=== PATIENT | male | born 1960 | race Caucasian/White ===

== ENCOUNTER 2017-04-13 10:02 | Day surgery (SDC) | payer OTHER ==
--- NOTE | 2017-03-19 07:26 | HP ---
CC: Dr. Senia Hauser * PREOPERATIVE HISTORY AND PHYSICAL: DATE OF ADMISSION: Patient is scheduled for same-day surgery admission by Dr. Goodrich on 04/13/17. DATE OF PREOPERATIVE HISTORY AND PHYSICAL EXAMINATION: 03/17/17. ATTENDING SURGEON: Dr. Vasile Goodrich * (dictated by Denys Capone NP) CHIEF COMPLAINT: Umbilical hernia. HISTORY OF PRESENT ILLNESS: The patient is a 56-year-old male recently evaluated by Dr. Goodrich for umbilical hernia. The patient reports it has been present for approximately 10 years and he notes that it is getting more uncomfortable and enlarging. He denies any signs or symptoms to suggest incarceration or strangulation. Dr. Goodrich examined the patient and notes an umbilical hernia, soft and reducible with mild tenderness. Dr. Goodrich has recommended open umbilical hernia repair with mesh as a same-day surgery procedure, and has discussed the nature of the procedure, the rationale for the procedure, the relevant risks and benefits, and today I reviewed the typical postoperative care and recovery. The patient has had a chance to ask questions and stated that he understands the information and is satisfied with the answers given to his questions. He will sign surgical consent on the day of surgery. PAST MEDICAL HISTORY: Generally healthy, no acute or chronic conditions. PAST SURGICAL HISTORY: Repair of left inguinal hernia, age 15. MEDICATIONS: Are limited to: 1. Occasional multivitamins. 2. CoQ10. 3. Vitamin B complex. 4. Viagra 25 mg p.o. p.r.n. ALLERGIES: No known drug allergies. FAMILY HISTORY: No known anesthesia complications, bleeding tendencies, or clotting disorders. Both parents are and had a history of heart disease. Mother had a history of colon cancer and father, lung cancer. SOCIAL HISTORY: He is and is employed in [employer]. He has never been a smoker. He drinks alcohol 1 to 4 times per week and exercises 2 to 4 times a week. He denies the use of other substances. REVIEW OF SYSTEMS: Constitutional: No fevers, chills, excessive fatigue, or weight loss. Endocrine: No diabetes or thyroid disease. Hematologic: No easy bruising or bleeding. No previous blood transfusions. Respiratory: No chronic cough or dyspnea on exertion. Cardiovascular: No anginal chest pain. No history of myocardial infarction. No history of hypertension. No palpitations. Gastrointestinal: No nausea, vomiting, diarrhea, or constipation. No change in bowel habits. Genitourinary: No dysuria. Musculoskeletal: No back or joint pain. Neurologic: No headache, blurred vision, areas of focal weakness or numbness. General: No history of deep vein thrombosis or pulmonary embolism. No previous anesthesia complications. PHYSICAL EXAMINATION GENERAL SURVEY: The patient is a 56-year-old male, well-developed, well- nourished, in no acute distress. VITAL SIGNS: Height 76 inches, weight 230 pounds, body mass index 28, blood pressure 118/78, pulse 72 and regular, respiratory rate 18, temperature 97.9 tympanic. HEENT: Benign. NECK: Supple. No cervical lymphadenopathy. LUNGS: Breath sounds bilaterally clear and equal. HEART: Regular rate and rhythm. No murmurs or rubs appreciated. ABDOMEN: Active bowel sounds, soft, nondistended, nontender throughout. Umbilical hernia noted, soft, and reducible with mild tenderness. No other masses or organomegaly. EXTREMITIES: Warm without edema or skin ulceration. GENITALIA AND RECTAL: Exams deferred. NEUROLOGIC: Alert and oriented x3. Steady gait. SKIN: Warm, dry, intact. IMPRESSION: Umbilical hernia. PLAN: Same-day surgery admission to Dr. Goodrich service on 04/13/17, for open umbilical hernia repair with mesh. DENYS CAPONE, LUCRECIA [id number]/[facility] #: [id number] AMADO
[~2017-04-13 10:02] MED LIST: Buffered Lidocaine 0.9% SYRIN* 5 ML/SYR SYRINGE INTRADERM ONE; Ibuprofen TAB* 400 MG PO ONE; Sodium Citrate/Citric Acid* 15 ML UDC PO ONE
[2017-04-13] MEDS ORDERED: ceFAZolin 2 GM PREMIX (*) 2 GM/50 ML BAG IVPB ONE (10:09)
[2017-04-13] MEDS ORDERED: Buffered Lidocaine 0.9% SYRIN* 5 ML/SYR SYRINGE ONE (10:09)
[2017-04-13] MEDS ORDERED: Ibuprofen TAB* 400 MG ONE (10:09)
[2017-04-13] MEDS ORDERED: Sodium Citrate/Citric Acid* 15 ML UDC ONE (10:09)
[2017-04-13] MEDS ORDERED: Bupivacaine 0.5% SDV PF* 30 ML VIAL ONE (10:31)
[2017-04-13] MEDS ORDERED: Lidocaine 1% INJ* 10 MG/ML 30 ML SDV ONE (10:31)
[2017-04-13] MEDS ORDERED: fentaNYL* 50 MCG/ML 2 ML VIAL (100 MCG VIAL) ONE (10:39)
[2017-04-13] MEDS ORDERED: Midazolam* 1 MG/ML 2 ML VIAL (2 MG) ONE (10:44)
[2017-04-13] MEDS ORDERED: Propofol* 10 MG/ML 20 ML BTL IV PUSH ONE (10:57)
[2017-04-13] MEDS ORDERED: oxyCODONE/Acetamin 5/325 MG* TAB PO PRN ×2 (11:08→11:34)
[2017-04-13] MEDS ORDERED: Ketorolac INJ* 30 MG/ML 1 ML VIAL IV PRN (11:08)
[2017-04-13 11:53] VITALS: BP 124/85
--- NOTE | 2017-04-14 02:28 | OP ---
CC: Senia Hauser MD * DATE OF OPERATION: 04/13/17 - [facility] DATE OF : 64 SURGEON: Vasile Goodrich MD INFORMATION SCIENTIST: STEFFI Jack ANESTHESIOLOGIST: Larry Petersen MD ANESTHESIA: Local MAC. PRE-OP DIAGNOSIS: Umbilical hernia. POST-OP DIAGNOSIS: Umbilical hernia. OPERATIVE PROCEDURE: Open repair, umbilical hernia with mesh. ESTIMATED BLOOD LOSS: Minimal. IV FLUIDS: Crystalloid. SPECIMEN: None. DRAINS: None. COMPLICATIONS: None. COUNTS: The instrument, needle and sponge counts correct. DESCRIPTION OF PROCEDURE: The patient was brought to the operating room and placed on the table supine. Sequential compression devices were placed on both lower extremities. An intravenous sedation was administered. His abdomen was prepped and draped in the usual sterile fashion and time-out was performed. Local anesthetic was infiltrated into the skin and soft tissue prior to making each incision. The incision was created in a curvilinear infraumbilical fashion. The umbilical stalk was from the anterior abdominal wall. The umbilical sac was entered. Preperitoneal fat was excised. The hernia defect measured about 2 cm. Closure was performed with the Bard umbilical hernia mesh with the small size patch placed into the peritoneal cavity and drawn up through the defect using the straps. The mesh was sutured in place superiorly and inferiorly with 0 Ethibond suture. The straps were cut and then the defect was closed with interrupted 0 Ethibond suture using two figure-of-8 stitches to complete the closure. The umbilical stalk was reapproximated to the fascia with 3-0 Vicryl. Skin incision was closed with 4-0 Monocryl in subcuticular fashion. Steri-Strips and dressings were applied. The patient tolerated the procedure well, was awakened and transferred to the recovery room in stable condition. [id number]/[facility] [place] #: [id number] MTDD
== END 2017-04-13 12:02 | disposition home or self-care (01) ==
LOC: OR 10:02
PROVIDERS: ATTEND Surgery
DX: K42.9 Umbilical hernia without obstruction or gangrene (principal)
CPT/HCPCS: A9270-GY; C1781; J0690; J2250; J2704; J3010

== ENCOUNTER 2018-09-18 12:44 | Emergency (ER) | payer OTHER ==
[2018-09-18] MEDS ORDERED: Fluorescein Sodium TOPICAL* 1 MG TEST STRIP OPHTHALMIC ONE (13:19)
--- NOTE | 2018-09-18 13:24 | ED ---
Throat Pain/Nasal Congestion - HPI Summary HPI Summary: This patient is a 58 year old M presenting to [facility] with a chief complaint of left eye pain, blurry vision, and flashes of light after hitting himself in the left eye with a power cord yesterday. Symptoms are currently improved from yesterday. Pain is rated 2/10 in severity. - History of Current Complaint Chief Complaint: EDEyeProblem Time Seen by Provider: 09/18/18 13:12 Hx Obtained From: Patient Onset/Duration: Sudden Onset, Lasting Days Severity: Mild Associated Signs And Symptoms: Positive: Negative - Allergies/Home Medications Allergies/Adverse Reactions: Allergies Allergy/AdvReac Type Severity Reaction Status Date / Time No Known Allergies Allergy Verified 04/13/17 10:12 PMH/Surg Hx/FS Hx/Imm Hx Endocrine/Hematology History: Denies: Hx Diabetes Cardiovascular History: Denies: Hx Hypertension, Hx Pacemaker/ICD GI History: Reports: Hx Hiatal Hernia - HX OF IN THE PAST- STATES HAD SURGERY FOR History: Denies: Hx Renal Disease Sensory History: Denies: Hx Contacts or Glasses, Hx Hearing Aid Opthamlomology History: Denies: Hx Contacts or Glasses Psychiatric History: Denies: Hx Panic Disorder - Surgical History Surgery Procedure, Year, and Place: HERNIA-HIATAL. LASIK EYES Hx Anesthesia Reactions: No Infectious Disease History: No Infectious Disease History: Denies: Traveled Outside the [place] in Last 30 Days - Family History Known Family History: Negative: Blood Disorder - Social History Alcohol Use: None Alcohol Amount: SEVERAL DRINKS PER WEEK Substance Use Type: Reports: None Smoking Status (MU): Never Smoked Tobacco Review of Systems Negative: Fever Positive: Blurred Vision, Other - eye pain, flashes All Other Systems Reviewed And Are Negative: Yes Physical Exam - Summary Physical Exam Summary: Appearance: The patient is well-nourished in no acute distress and in no acute pain. Skin: The skin is warm and dry and skin color reflects adequate perfusion. HEENT: The head is normocephalic and atraumatic. The pupils are equal and reactive. The conjunctivae are clear and without drainage. Nares are patent and without drainage. Mouth reveals moist mucous membranes and the throat is without erythema and exudate. The external ears are intact. The ear canals are patent and without drainage. The tympanic membranes are intact. Eye: Pupils 2mm, bialetally reactive both direct and consensual, sclera is clear , chamber looks clear, fundus clearing not visualized on left , extraocular muscle in tact, good red reflex Neck: The neck is supple with full range of motion and non-tender. There are no carotid bruits. There is no neck vein distension. Respiratory: Chest is non-tender. Lungs are clear to auscultation and breath sounds are symmetrical and equal. Cardiovascular: Heart is regular rate and rhythm. There is no murmur or rub auscultated. There is no peripheral edema and pulses are symmetrical and equal. Abdomen: The abdomen is soft and non-tender. There are normal bowel sounds heard in all four quadrants and there is no organomegaly palpated. Musculoskeletal: There is no back tenderness noted. Extremities are non-tender with full range of motion. There is good capillary refill. There is no peripheral edema or calf tenderness elicited. Neurological: Patient is alert and oriented to person, place and time. The patient has symmetrical motor strength in all four extremities. Cranial nerves are grossly intact. Deep tendon reflexes are symmetrical and equal in all four extremities. Psychiatric: The patient has an appropriate affect and does not exhibit any anxiety or depression Triage Information Reviewed: Yes Vital Signs On Initial Exam: Initial Vitals Temp Pulse Resp BP Pulse Ox 98.1 F 82 18 113/87 97 09/18/18 12:48 09/18/18 12:48 09/18/18 12:48 09/18/18 12:48 09/18/18 12:48 Vital Signs Reviewed: Yes Diagnostics - Vital Signs Vital Signs Temp Pulse Resp BP Pulse Ox 09/18/18 12:48 98.1 F 82 18 113/87 97 - Laboratory Lab Statement: Any lab studies that have been ordered have been reviewed, and results considered in the medical decision making process. EENT Course/Dx - Course Course Of Treatment: Mr. Dugan was pulling on an electrical cord yesterday and it flipped back and hit his left eye. He noticed some electric light type symptoms later in the day when he was relaxing on the deck. Today's noticed a little bit of blurriness in his vision. He does say that it hurts a little bit and that he has little bit of photophobia. He was nontoxic in appearance with stable vitals. His pupils are equal and reactive to both direct and consensual light. The sclera is clear. Slit lamp is not available but his anterior chamber looks grossly clear. His pupils are quite small even in a dark room bilaterally and I can barely see his retina on the right and can't really see it on the left. His visual acuities revealed 20/15 in his right eye and 20/40 to 20/60 in the left eye. I spoke with Dr. Anderson office administration for ophthalmology who recommended cycloplegic drops and follow up first thing in the morning with Dr. Anderson. Patient agrees to do that. - Diagnoses Provider Diagnoses: Traumatic iritis - Provider Notifications Discussed Care Of Patient With: Nikolas Anderson - optamology Time Discussed With Above Provider: 14:16 Instructed by Provider To: Have Pt Call For Appt. - will see in office tomorrow morning at 7:45 Discharge - Sign-Out/Discharge Documenting (check all that apply): Patient Departure - discharge Patient Received Moderate/Deep Sedation with Procedure: No - Discharge Plan Condition: Stable Disposition: HOME Patient Education Materials: Iritis (ED) Referrals: Nikolas Anderson MD [Medical Doctor] - 1 Day (Follow up with Dr. Anderson at 7: 45 tomorrow morning.) Additional Instructions: RETURN TO THE EMERGENCY DEPARTMENT FOR CHANGING OR WORSENING SYMPTOMS. - Billing Disposition and Condition Condition: STABLE Disposition: Home - Attestation Statements Document Initiated by Lucila: Yes Documenting Scribe: Jennifer Fong Provider For Whom Lucila is Documenting (Include Credential): Philip Rousseau MD Scribe Attestation: I, Jennifer Fong, scribed for Philip Rousesau MD on 09/18/18 at 2026. Scribe Documentation Reviewed: Yes Provider Attestation: The documentation as recorded by the Jennifer baxter accurately reflects the service I personally performed and the decisions made by me, Philip Rousseau MD Status of Scribe Document: Viewed
[2018-09-18] MEDS ORDERED: Tetracaine 0.5% OPTH.SOL 4 ML* 1 DROP BTL LEFT EYE SCH (13:30)
[2018-09-18] MEDS ORDERED: Cyclopentolate 1% OPTH.SOL* 2 ML BTL LEFT EYE ONE (14:25)
[2018-09-18 14:47] VITALS: BP 128/84
== END 2018-09-18 14:46 | disposition home or self-care (01) ==
LOC: ED 12:44
DX: H20.012 Primary iridocyclitis, left eye (principal)
CPT/HCPCS: 99282; A9270-GY

== ENCOUNTER 2023-10-09 17:47 | Inpatient (IN) ==
[2023-10-09 19:27] LABS: ABS Basophils 0.1 10^3/uL (0.0-0.1); ABS Eosinophils 0.1 10^3/uL (0.0-0.5); ABS Lymphocytes 1.6 10^3/uL (1.0-4.8); ABS Monocytes 0.7 10^3/uL (0.0-1.1); ABS Neutrophils 8.6 10^3/uL (1.5-7.6); ABS Nucleated RBC 0.01 10^3/ul; Eosinophil % 0.7 %; Hematocrit 41.5 % (38-53); Hemoglobin 14.1 g/dL (13.2-16.3); Lymphocyte % 14.2 %; Mean Corpuscular Hemoglobin 29.2 pg (27-33); Mean Corpuscular Volume 85.9 fL (80-97); Mean Platelet Volume 7.2 fL (7.5-11.2); Nucleated Red Blood Cells % 0.1 %/100WBC (0.0-0.8); Platelet Count 336 10^3/uL (150-450); Red Blood Count 4.83 10^6/uL (4.06-5.63); Red Cell Distribution Width 13.2 % (12-17)
[2023-10-09 19:28] LABS: Urine Appearance Turbid; Urine Bilirubin Negative (Negative); Urine Blood Trace (Negative); Urine Color Light-Yellow; Urine Glucose Negative (Negative); Urine Ketones Negative (Negative); Urine Nitrite Negative (Negative); Urine Protein Negative (Negative); Urine Specific Gravity 1.014 (1.002-1.030); Urine Urobilinogen Negative (Negative)
[2023-10-09 20:02] LABS: Albumin 4.4 g/dL (3.2-5.2); Albumin/Globulin Ratio 1.5 (1-3); C Reactive Protein 28.45 mg/L (<8.01); Calcium 9.4 mg/dL (8.6-10.3); Creatinine, Serum 0.8 mg/dL (0.67-1.17); Potassium 3.6 mmol/L (3.5-5.0); Total Bilirubin 0.7 mg/dL (0.2-1.0); Total Protein 7.4 g/dL (6.4-8.9); eGFR CKD-EPI 100.7 (>60)
[2023-10-09] MEDS: Lactated Ringers 1000 ml BAG 1,000 ML IV ONE (20:18)
[2023-10-09] MEDS: Piperacillin/Tazobac 3.375 BAG 3.375 GM/100 ML BAG IV ONE (20:39)
[2023-10-09] MEDS: Iohexol 300 (CONTRAST) 10 ML SDV IV ONE (20:40)
[2023-10-09] MEDS: Ondansetron 4 mg VIAL 2 MG/ML 2 ml VIAL IV ONE (20:52)
[2023-10-09] MEDS: Morphine 4 MG/ML VIAL (1 ml) IV ONE (20:52)
[2023-10-09] MEDS ORDERED: Zosyn per Pharmacy NOTE FOLLOW UP SCH (23:00)
[2023-10-10] MEDS: ZOSYN 3.375 GM Q8H per EXTENDED INFUSION IV SCH (00:44)
[2023-10-10 05:04] LABS: ABS Basophils 0.1 10^3/uL (0.0-0.1); ABS Eosinophils 0.2 10^3/uL (0.0-0.5); ABS Lymphocytes 1.8 10^3/uL (1.0-4.8); ABS Neutrophils 8.2 10^3/uL (1.5-7.6); Eosinophil % 1.9 %; Hematocrit 38.8 % (38-53); Hemoglobin 13.6 g/dL (13.2-16.3); Lymphocyte % 15.6 %; Mean Corpuscular Hemoglobin 30.1 pg (27-33); Mean Corpuscular Volume 85.9 fL (80-97); Mean Platelet Volume 6.9 fL (7.5-11.2); Platelet Count 303 10^3/uL (150-450); Red Blood Count 4.52 10^6/uL (4.06-5.63); Red Cell Distribution Width 13.3 % (12-17); White Blood Count 11.3 10^3/uL (3.6-10.2)
[2023-10-10 05:58] LABS: Calcium 8.8 mg/dL (8.6-10.3); Creatinine, Serum 0.88 mg/dL (0.67-1.17); Potassium 3.8 mmol/L (3.5-5.0); eGFR CKD-EPI 97.8 (>60)
[2023-10-10 08:11] LABS: Albumin 4.1 g/dL (3.2-5.2); Albumin/Globulin Ratio 1.5 (1-3); Direct Bilirubin 0.1 mg/dL (0.03-0.18); Globulin 2.7 g/dL (2-4); Indirect Bilirubin 0.9 mg/dL (0.3-1.0); Total Protein 6.8 g/dL (6.4-8.9)
[2023-10-10] MEDS: Ondansetron 4 mg VIAL 2 MG/ML 2 ml VIAL IV PRN (17:12)
[2023-10-10] MEDS: Morphine 2 MG/ML SYRINGE IV PRN ×2 (17:12→22:57)
[2023-10-10] MEDS ORDERED: Morphine 2 MG/ML SYRINGE IV PRN (18:04)
[2023-10-10] MEDS: Prochlorperazine 5 mg/ml 2 ml VIAL (10 mg) IV ONE (20:05)
[2023-10-10] MEDS: Lactated Ringers 1000 ml BAG 1,000 ML IV SCH (20:18)
[2023-10-10] MEDS: KCL 20 MEQ/100 ML IVPREMIX 20 MEQ/100 ML BAG IV ONE (20:21)
[2023-10-10] MEDS: Morphine 2 MG/ML SYRINGE IV ONE (20:48)
[2023-10-11 06:07] LABS: ABS Lymphocytes 0.8 10^3/uL (1.0-4.8); ABS Monocytes 1.1 10^3/uL (0.0-1.1); ABS Neutrophils 12.7 10^3/uL (1.5-7.6); Eosinophil % 0.1 %; Hematocrit 42.5 % (38-53); Hemoglobin 14.5 g/dL (13.2-16.3); Lymphocyte % 5.8 %; Mean Corpuscular Hgb Conc 34.2 g/dL (31-36); Mean Corpuscular Volume 87.6 fL (80-97); Mean Platelet Volume 7.3 fL (7.5-11.2); Platelet Count 312 10^3/uL (150-450); Red Blood Count 4.85 10^6/uL (4.06-5.63); Red Cell Distribution Width 13.4 % (12-17); White Blood Count 14.7 10^3/uL (3.6-10.2)
[2023-10-11 06:26] LABS: Albumin 4.2 g/dL (3.2-5.2); Albumin/Globulin Ratio 1.5 (1-3); Calcium 8.9 mg/dL (8.6-10.3); Creatinine, Serum 0.72 mg/dL (0.67-1.17); Globulin 2.8 g/dL (2-4); Potassium 4.2 mmol/L (3.5-5.0); Total Bilirubin 4.8 mg/dL (0.2-1.0); eGFR CKD-EPI 103.9 (>60)
[2023-10-11] MEDS: Lactated Ringers 1000 ml BAG 1,000 ML IV SCH ×2 (10:24→20:30)
[2023-10-11] MEDS ORDERED: Iohexol 180 (CONTRAST) 10 ML SDV IV ONE ×2 (13:54→16:14)
[2023-10-11] MEDS ORDERED: Glucagon 1 mg VIAL KIT ONE (13:55)
[2023-10-11] MEDS ORDERED: Bupivacaine 0.25% EPI 200,000 30 ML SDV ONE (13:55)
[2023-10-11] MEDS ORDERED: ceFOXitin 2 GM IVPREMIX 2 GM/50 ML BAG ONE (14:25)
[2023-10-11] MEDS ORDERED: Propofol 10 MG/ML 20 ML BTL ONE (14:45)
[2023-10-11] MEDS ORDERED: Lidocaine 2% PF 5 ML VIAL ONE (14:45)
[2023-10-11] MEDS ORDERED: Ondansetron 4 mg VIAL 2 MG/ML 2 ml VIAL ONE (14:45)
[2023-10-11] MEDS ORDERED: Rocuronium 50 mg VIAL 10 mg/ml 5 ml VIAL (50 mg) ONE ×2 (14:45→16:12)
[2023-10-11] MEDS ORDERED: fentaNYL 100 mcg/2 ml 50 MCG/ML VIAL ONE ×2 (14:45→15:05)
[2023-10-11] MEDS ORDERED: Midazolam 2 mg/2 ml VIAL 1 mg/ml 2 ml VIAL (2 mg) ONE (14:45)
[2023-10-11] MEDS ORDERED: Dexamethasone IV 4 MG/ML VIAL 1 ml VIAL ONE (14:45)
[2023-10-11] MEDS ORDERED: Phenylephrine 40 mcg/mL 10mL (400mcg) SYRINGE ONE (14:55)
[2023-10-11] MEDS ORDERED: HYDROmorphone 0.5 MG/0.5 ML SYRINGE ONE (16:25)
[2023-10-11] MEDS ORDERED: fentaNYL 100 mcg/2 ml 50 MCG/ML VIAL IV PRN (16:44)
[2023-10-11] MEDS ORDERED: Ondansetron 4 mg VIAL 2 MG/ML 2 ml VIAL IV PRN (16:44)
[2023-10-11] MEDS ORDERED: Naloxone 0.4 mg VIAL 0.4 mg/ml 1 ml VIAL IV PRN ×2 (16:44)
[2023-10-11] MEDS ORDERED: Metoclopramide 5 MG/ML VIAL (10 mg) IV PRN (16:44)
[2023-10-11] MEDS ORDERED: Desflurane 240 ML INH ONE (16:52)
[2023-10-11] MEDS ORDERED: Morphine 2 MG/ML SYRINGE IV PRN (18:29)
[2023-10-11] MEDS: Scopolamine 1 mg/72hr PATCH TRANSDERM ONE (18:49)
[2023-10-11] MEDS: NS 0.9% 1000 ml BAG 1,000 ML IV SCH (18:49)
[2023-10-11] MEDS: Buffered Lidocaine 1% SYRIN 1 ml INTRADERM ONE (20:29)
[2023-10-12 05:24] LABS: ABS Lymphocytes 0.7 10^3/uL (1.0-4.8); ABS Monocytes 0.5 10^3/uL (0.0-1.1); ABS Neutrophils 9.3 10^3/uL (1.5-7.6); Hematocrit 38.9 % (38-53); Hemoglobin 13.7 g/dL (13.2-16.3); Lymphocyte % 6.7 %; Mean Corpuscular Hemoglobin 30.6 pg (27-33); Mean Corpuscular Hgb Conc 35.1 g/dL (31-36); Mean Corpuscular Volume 87.2 fL (80-97); Mean Platelet Volume 7.2 fL (7.5-11.2); Platelet Count 314 10^3/uL (150-450); Red Blood Count 4.47 10^6/uL (4.06-5.63); Red Cell Distribution Width 13.7 % (12-17); White Blood Count 10.5 10^3/uL (3.6-10.2)
[2023-10-12 05:44] LABS: Albumin 3.7 g/dL (3.2-5.2); Albumin/Globulin Ratio 1.5 (1-3); Calcium 8.6 mg/dL (8.6-10.3); Creatinine, Serum 0.84 mg/dL (0.67-1.17); Globulin 2.5 g/dL (2-4); Potassium 4.1 mmol/L (3.5-5.0); Total Bilirubin 6.8 mg/dL (0.2-1.0); Total Protein 6.2 g/dL (6.4-8.9); eGFR CKD-EPI 99.2 (>60)
[2023-10-12 10:51] VITALS: BP 136/91
== END 2023-10-12 14:38 | disposition short-term general hospital (02) | DRG 419 ==
LOC: ED 17:47 → EDHOLD 22:26 → SUATTDRO 22:26 → SSU 10-10 07:26
PROVIDERS: ADMIT Internal Medicine; ATTEND Surgery